=== PATIENT | female | born 1995 ===

== ENCOUNTER 2017-11-19 19:28 | Emergency (ER) | payer OTHER ==
[2017-11-19 19:47] VITALS: BP 121/68; PULSE 97; RESP 16; TEMP 99.8; O2SAT 100; BMI 21.9
[2017-11-19] MEDS ORDERED: Naproxen 500 MG TAB PO ONE ×2 (20:34→20:49)
--- NOTE | 2017-11-19 20:50 | ED PDOC ---
HPI: Influenza Time Seen by Provider: 11/19/17 20:17 Chief Complaint: Flu-like Symptoms History Per: Patient Have you had recent travel within the past 21 days to any of: No Additional complaint(s):: Pt. states for the past 3 days she's had congestion and sore throat with mild cough. This morning she developed a fever tmax of 100. She took Advil at 1000 with minimal relief of symptoms. Denies N/V/D, headache, rash, abdominal pain, SOB, hemoptysis, chest pain, sick contacts, recent travel. Past Medical History Reviewed: Historical Data, Nursing Documentation, Vital Signs Vital Signs: Last Vital Signs Temp 99.8 F H 11/19/17 19:46 Pulse 97 H 11/19/17 19:46 Resp 16 11/19/17 19:46 BP 121/68 11/19/17 19:46 Pulse Ox 100 11/19/17 19:46 - Medical History PMH: Asthma, Gastritis - Surgical History Surgical History: No Surg Hx - Family History Family History: States: Diabetes, Hypertension - Home Medications Home Medications: Ambulatory Orders Medication Instructions Recorded Famotidine [Pepcid] 20 mg PO DAILY PRN #6 tab 01/08/16 Albuterol 0.083% [Albuterol 0.083% PRN 05/10/16 Inhal Maryam (2.5 mg/3 ml) UD] Bismuth Subsalicylate [Bismuth] 262 mg PO 05/10/16 Budesonide/Formoterol Fumarate PRN 05/10/16 [Symbicort 160-4.5 Mcg Inhaler] Fluticasone Propionate [Flonase] 2 spr NS DAILY PRN #1 bottle 11/19/17 Naproxen [Naprosyn] 500 mg PO BID PRN #14 tab 11/19/17 - Allergies Allergies/Adverse Reactions: Allergies Allergy/AdvReac Type Severity Reaction Status Date / Time acetaminophen Allergy RASH Verified 11/29/15 13:04 Review of Systems ROS Statement: Except As Marked, All Systems Reviewed And Found Negative Constitutional: Positive for: Fever ENT: Positive for: Nose Congestion, Throat Pain Respiratory: Positive for: Cough Physical Exam - Physical Exam Appears: Positive for: Well, Non-toxic, No Acute Distress Skin: Positive for: Normal Color, Warm. Negative for: Rash Eye Exam: Positive for: Normal appearance. Negative for: Conjunctival injection ENT: Positive for: TM Is/Are (non-erythematous, non-bulging b/l), Nasal Congestion, Pharyngeal Erythema. Negative for: Sinus Pain/Drainage, Tonsillar Exudate, Tonsillar Swelling Cardiovascular/Chest: Positive for: Regular Rate, Rhythm. Negative for: Murmur , Tachycardia Respiratory: Positive for: Normal Breath Sounds. Negative for: Respiratory Distress Gastrointestinal/Abdominal: Positive for: Normal Exam, Soft. Negative for: Tenderness, Organomegaly Neurologic/Psych: Positive for: Alert, Oriented. Negative for: Aphasia, Facial Droop - ECG O2 Sat by Pulse Oximetry: 100 - Progress ED Course And Treament: Naproxen 500mg PO, rapid strep, rapid flu ordered. Re-evaluation Time: 21:45 Condition: Re-examined, Improved Disposition - Clinical Impression Clinical Impression: URI (upper respiratory infection) - Patient ED Disposition Is Patient to be Admitted: No - [facility] Disposition: Routine/Home Disposition Time: 21:45 Condition: STABLE Additional Instructions: HOLLY DEE, thank you for letting us take care of you today. Your provider was Graham Meyers MD and you were treated for FLU LIKE SYMPTOMS. The emergency medical care you received today was directed at your acute symptoms. If you were prescribed any medication, please fill it and take as directed. It may take several days for your symptoms to resolve. Return to the Emergency Department if your symptoms worsen, do not improve, or if you have any other problems. Please contact your doctor or call one of the physicians/clinics you have been referred to that are listed on the Patient Visit Information form that is included in your discharge packet. Bring any paperwork you were given at discharge with you along with any medications you are taking to your follow up visit. Our treatment cannot replace ongoing medical care by a primary care provider outside of the emergency department. Thank you for allowing the [facility] team to be part of your care today. If you had an X-Ray or CT scan: A Radiologist will review the ED reading if any change in treatment is needed we will contact you. If you had a blood, urine, or wound culture: It will take several days for the results, if any change in treatment is needed we will contact you. If you had an STI test: It will take 48 hours for the results. Please call after 1 week if you have not heard back. Prescriptions: Fluticasone Propionate [Flonase] 2 spr NS DAILY PRN #1 bottle PRN Reason: Allergy Symptoms Naproxen [Naprosyn] 500 mg PO BID PRN #14 tab PRN Reason: Pain Instructions: Viral Upper Respiratory Infection, Adult (DC) Forms: [email or web address] (Northern Irish) Print Language: HONDURAN
== END 2017-11-19 22:51 | disposition home or self-care (01) ==
LOC: H.ER 19:28
DX: J06.9 Acute upper respiratory infection, unspecified (principal)

== ENCOUNTER 2018-05-09 12:11 | Emergency (ER) | payer OTHER ==
[2018-05-09 12:11] VITALS: BMI 21.9
[2018-05-09 12:30] VITALS: O2SAT 99
--- NOTE | 2018-05-09 12:45 | ED PDOC ---
HPI: Influenza Time Seen by Provider: 05/09/18 12:43 Chief Complaint: Cough, Cold, Congestion Chief Complaint (Provider): Cough History Per: Patient Exam Limitations: no limitations Onset/Duration Of Symptoms: Days (x1 week) Hx Influenza Vaccination: No Additional complaint(s):: 22 year old female presents to the ED for evaluation of a cough productive of green phlegm for the past week. She reports taking Nyquil and Dayquil with little to no relief. Denies receiving the flu shot this year. PMD: Dereck Jurado Past Medical History Reviewed: Historical Data, Nursing Documentation, Vital Signs Vital Signs: Last Vital Signs Temp 99 F 05/09/18 12:28 Pulse 88 05/09/18 12:28 Resp 20 05/09/18 12:28 BP 128/92 H 05/09/18 12:28 Pulse Ox 99 05/09/18 12:28 - Medical History PMH: Asthma, Gastritis - Surgical History Surgical History: No Surg Hx - Family History Family History: States: Diabetes, Hypertension - Living Arrangements Living Arrangements: With Family - Social History Current smoker - smoking cessation education provided: No Alcohol: Social Drugs: Denies - Home Medications Home Medications: Ambulatory Orders Medication Instructions Recorded Famotidine [Pepcid] 20 mg PO DAILY PRN #6 tab 01/08/16 Albuterol 0.083% [Albuterol 0.083% PRN 05/10/16 Inhal Maryam (2.5 mg/3 ml) UD] Bismuth Subsalicylate [Bismuth] 262 mg PO 05/10/16 Budesonide/Formoterol Fumarate PRN 05/10/16 [Symbicort 160-4.5 Mcg Inhaler] Fluticasone Propionate [Flonase] 2 spr NS DAILY PRN #1 bottle 11/19/17 RX: Naproxen [Naprosyn] 500 mg PO BID PRN #14 tab 11/19/17 Oseltamivir Phosphate [Tamiflu] 75 mg PO BID #10 capsule 05/09/18 - Allergies Allergies/Adverse Reactions: Allergies Allergy/AdvReac Type Severity Reaction Status Date / Time acetaminophen Allergy RASH Verified 11/29/15 13:04 Review of Systems ROS Statement: Except As Marked, All Systems Reviewed And Found Negative Respiratory: Positive for: Cough, Sputum (green) Physical Exam - Reviewed Nursing Documentation Reviewed: Yes Vital Signs Reviewed: Yes - Physical Exam Appears: Positive for: No Acute Distress Head Exam: Positive for: ATRAUMATIC, NORMOCEPHALIC Skin: Positive for: Normal Color, Warm, Diaphoresis (mildly) Eye Exam: Positive for: Normal appearance ENT: Positive for: Normal ENT Inspection. Negative for: Pharyngeal Erythema, Tonsillar Exudate, Tonsillar Swelling, Other (maxillary or frontal tenderness to palpation) Neck: Positive for: Painless ROM, Supple Cardiovascular/Chest: Positive for: Regular Rate, Rhythm Respiratory: Positive for: Normal Breath Sounds. Negative for: Crackles, Rales, Rhonchi, Wheezing, Respiratory Distress Gastrointestinal/Abdominal: Positive for: Normal Exam, Soft. Negative for: Tenderness Lymphatic: Positive for: Other (cervical lymphnodes mildly swollen bilaterally) Neurologic/Psych: Positive for: Alert, Oriented (x3) Medical Decision Making Medical Decision Making: Time: 1246 Initial Impression: most likely influenza Initial Plan: --Influenza A B swab --Urine 1428 Patient flu negative. Urine Preg negative Based on hx of comorbidities, will RX tamiflu as a prevenatitive measure ----- Scribe Attestation: Documented by Lena Khan, acting as a scribe for Hiram Mcdowell PA-C. Provider Scribe Attestation: All medical record entries made by the Scribe were at my direction and personally dictated by me. I have reviewed the chart and agree that the record accurately reflects my personal performance of the history, physical exam, medical decision making, and the department course for this patient. I have also personally directed, reviewed, and agree with the discharge instructions and disposition. - ECG O2 Sat by Pulse Oximetry: 99 (RA) Pulse Ox Interpretation: Normal Disposition - Clinical Impression Clinical Impression: Common cold, Influenza-like symptoms Doctor Will See Patient In The: Office Counseled Patient/Family Regarding: Studies Performed, Diagnosis, Need For Followup, Rx Given - Disposition Disposition: Routine/Home Disposition Time: 14:50 Condition: STABLE Additional Instructions: Follow up with PMD in 24-48 hours Fluids Rest Dayquil and Nyquil Chicken Soup Tamiflu rx Prescriptions: Oseltamivir Phosphate [Tamiflu] 75 mg PO BID #10 capsule Instructions: Viral Upper Respiratory Infection, Adult (DC) Forms: [employer] (Tanzanian)
[2018-05-09 14:51] VITALS: BP 118/88; PULSE 84; RESP 16; TEMP 98.6
== END 2018-05-09 14:50 | disposition home or self-care (01) ==
LOC: H.ER 12:11
DX: J11.1 Influenza due to unidentified influenza virus with other respiratory manifestations (principal); J00 Acute nasopharyngitis [common cold]